=== PATIENT | female | born 1995 | race Caucasian/White ===

== ENCOUNTER 2020-02-29 11:20 | Emergency (ER) | payer BC, OTHER ==
[~2020-02-29] VITALS: Ht 162.6 cm; Wt 68.6 kg
[2020-02-29 11:31] VITALS: BP 120/83
--- NOTE | 2020-02-29 11:43 | NUR ---
PT TO [facility] FROM [facility]
[2020-02-29 12:03] LABS: BASOPHILS # (AUTO) 0.05 x10^3/uL (0-0.1); BASOPHILS % (AUTO) 1 % (0-1); EOSINOPHILS # (AUTO) 0.03 x10^3/uL (0-0.4); EOSINOPHILS % (AUTO) 0 % (1-7); LYMPHOCYTES # (AUTO) 2.13 x10^3/uL (1-3.4); LYMPHOCYTES % (AUTO) 32 % (22-44); MD NO; MEAN CORPUSCULAR HEMOGLOBIN 31.5 pg (27.0-34.8); MEAN CORPUSCULAR HGB CONC 33.5 g/dL (32.4-35.8); MEAN CORPUSCULAR VOLUME 93.9 fL (80-100); MEAN PLATELET VOLUME 7.7 fL (7.4-10.4); MONOCYTES # (AUTO) 0.51 x10^3/uL (0.2-0.8); MONOCYTES % (AUTO) 8 % (2-9); NEUTROPHILS # (AUTO) 3.88 x10^3/uL (1.8-6.8); NEUTROPHILS % (AUTO) 59 % (42-75); PLATELET COUNT 304 x10^3/uL (130-400); RED BLOOD COUNT 4.39 x10^6/uL (3.82-5.3); RED CELL DISTRIBUTION WIDTH 12.9 % (9.6-15.2)
[2020-02-29 12:06] LABS: MICROSCOPIC AUTO
[2020-02-29 12:11] LABS: ANION GAP 8 mmol/L (5-15); CALCIUM 9.2 mg/dL (8.5-10.1); CHLORIDE 110 mmol/L (98-107); CREATININE 0.78 mg/dL (0.55-1.02)
[2020-02-29] MEDS ORDERED: PROMETHAZINE 12.5 MG SUPP PR ONE (14:00)
[2020-02-29] MEDS ORDERED: POTASSIUM CHLORIDE 20 MEQ TAB.ER.PRT PO ONE (14:00)
--- NOTE | 2020-02-29 14:03 | NUR ---
Patient/Caregiver given discharge instructions and they have confirmed that they understand the instructions. Patient ambulatory with steady gait.
== END 2020-02-29 14:05 | disposition home or self-care (01) ==
LOC: ED 13:12
DX: R10.84 Generalized abdominal pain (principal); E87.6 Hypokalemia; Z88.0 Allergy status to penicillin
CPT/HCPCS: 36415; 80048; 81001; 82040; 84703; 85025; 87086; 99283